=== PATIENT | female | born 1995 | race Asian ===

== ENCOUNTER 2021-08-03 13:26 | Emergency (ER) | payer MEDICAID ==
[~2021-08-03] VITALS: Ht 160 cm; Wt 63.0 kg
[2021-08-03 14:08] VITALS: BP 109/71
[2021-08-03 15:22] LABS: COVID AG,FIA SOURCE NASOPHARYNGEAL
[2021-08-03 15:40] LABS: INFLUENZA TYPE A NEGATIVE FOR TYPE A (NEGATIVE); INFLUENZA TYPE B NEGATIVE FOR TYPE B (NEGATIVE)
== END 2021-08-03 16:28 | disposition home or self-care (01) ==
LOC: EMS 13:29
DX: U07.1 COVID-19 (principal)
CPT/HCPCS: 87804; 99283